=== PATIENT | male | born 2000 | race Caucasian/White ===

== ENCOUNTER 2021-11-07 10:14 | Emergency (ER) | payer MEDICAID ==
[2021-11-07] MEDS ORDERED: LORazepam 2 MG/ML SDV IVPUSH ONE (10:17)
[2021-11-07] MEDS ORDERED: Sodium Chloride 0.9% 1,000 ML IV ONE ×2 (10:17→10:57)
[2021-11-07 10:44] LABS: BLOOD UREA NITROGEN,BUN 21 mg/dL (7.0-18.0); CARBON DIOXIDE,CO2 26.3 mmol/L (21.0-32.0); CHLORIDE,CL 100 mmol/L (98-107); GLUCOSE RANDOM 85 mg/dL (74-106); POTASSIUM,K 4.3 mmol/L (3.5-5.1); SODIUM,NA 140 mmol/L (136-148)
== END 2021-11-07 12:20 | disposition home or self-care (01) ==
LOC: MW.ED 10:14
DX: F15.10 Other stimulant abuse, uncomplicated (principal); Z88.5 Allergy status to narcotic agent; Z88.0 Allergy status to penicillin
CPT/HCPCS: 36415; 80053; 85025; 93005; 96374; 99284; J2060; J7030